=== PATIENT | female | born 1945 | race Caucasian/White ===

== ENCOUNTER 2016-08-18 14:47 | Observation (INO) | payer OTHER ==
[2016-08-18] MEDS ORDERED: CEFAZOLIN 1 GM/D5W RTU 50 ML IV ONE (15:17)
--- NOTE | 2016-08-18 15:20 | ER Document Report ---
ED Extremity Problem, Lower - General Time seen by provider: 15:20 Mode of Arrival: Medic Information source: Patient TRAVEL OUTSIDE OF THE [place] IN LAST 30 DAYS: No - HPI Patient complains to provider of: Injury Associated symptoms: Other - See above <RHONA BEATTY - Last Filed: 08/18/16 16:46> <ALTONLONDON SAMPSON - Last Filed: 08/18/16 22:51> - General Chief Complaint: Ankle Injury Stated Complaint: LEFT ANKLE INJURY Notes: Patient is a 70 year old female who presents to the emergency department via EMS complaining of a left ankle injury just prior to arrival. Patient states she was mowing the lawn when she tripped and ran over her inner left ankle with the mower. Patient denies hitting her head or pain elsewhere. Patient reports she is on blood pressure medication and denies being on any blood thinners. ( RHONA BEATTY) - Related Data Allergies/Adverse Reactions: No Known Allergies Allergy (Unverified 04/02/11 18:36) Past Medical History - General Information source: Patient - Social History Smoking Status: Unknown if Ever Smoked Family History: Reviewed & Not Pertinent - Past Medical History Cardiac Medical History: Reports: Hx Hypertension - meds x 20 years Endocrine Medical History: Reports: Hx Diabetes Mellitus Type 2 Musculoskeltal Medical History: Reports Hx Arthritis Past Surgical History: Reports: Hx Appendectomy - Immunizations Hx Diphtheria, Pertussis, Tetanus Vaccination: No <RHONA BEATTY - Last Filed: 08/18/16 16:46> Review of Systems - Review of Systems Constitutional: No symptoms reported EENT: No symptoms reported Cardiovascular: No symptoms reported Respiratory: No symptoms reported Gastrointestinal: No symptoms reported Genitourinary: No symptoms reported Female Genitourinary: No symptoms reported Musculoskeletal: See HPI, Other - left ankle injury Skin: No symptoms reported Hematologic/Lymphatic: No symptoms reported Neurological/Psychological: No symptoms reported -: Yes All other systems reviewed and negative <RHONA BEATTY - Last Filed: 08/18/16 16:46> Physical Exam <RHOAN BEATTY - Last Filed: 08/18/16 16:46> - Vital signs Interpretation: Normal - General General appearance: Appears well, Alert - HEENT Head: Normocephalic, Atraumatic Eyes: Normal Pupils: PERRL - Respiratory Respiratory status: No respiratory distress Chest status: Nontender Breath sounds: Normal Chest palpation: Normal - Cardiovascular Rhythm: Regular Heart sounds: Normal auscultation Murmur: No - Abdominal Inspection: Normal Distension: No distension Bowel sounds: Normal Tenderness: Nontender Organomegaly: No organomegaly - Back Back: Normal, Nontender - Extremities General upper extremity: Normal inspection, Nontender, Normal color, Normal ROM , Normal temperature Shoulder: Normal Arm: Normal Elbow: Normal Forearm: Normal Wrist: Normal Hand: Normal Hip: Normal Thigh: Normal Knee: Normal Calf: Normal - Neurological Neuro grossly intact: Yes Cognition: Normal Orientation: AAOx4 Taiwo Coma Scale Eye Opening: Spontaneous Taiwo Coma Scale Verbal: Oriented Taiwo Coma Scale Motor: Obeys Commands Taiwo Coma Scale Total: 15 Speech: Normal Motor strength normal: LUE, RUE, LLE, RLE Sensory: Normal - Psychological Associated symptoms: Normal affect, Normal mood - Skin Skin Temperature: Warm Skin Moisture: Dry Skin Color: Normal <LONDON DANG - Last Filed: 08/18/16 22:51> - Vital signs Vitals: Temp Pulse Resp BP Pulse Ox 97.8 F 89 20 155/92 H 96 08/18/16 14:56 08/18/16 14:56 08/18/16 14:56 08/18/16 14:56 08/18/16 14:56 - Extremities Notes: Left ankle: 8cm length by 6 cm wdth along the posterior medial aspect of the ankle. Exposed/lacerated posterior tibial tendon. Patient lacks sensation along the plantar aspect of the great toe. Patient has intact plantar flexion and dorsiflexion against resistance. Can invert/ krystal. Maceration of the skin with exposed bone. (LONDON DANG) Course - Laboratory Result Diagrams: 08/18/16 15:26 08/18/16 15:26 - Consults Dr. Hair Time consulted: 15:55 - Agreed to come view the patient <RHONA BEATTY - Last Filed: 08/18/16 16:46> - Laboratory Result Diagrams: 08/18/16 15:26 08/18/16 15:26 - Diagnostic Test Radiology reviewed: Image reviewed, Reports reviewed - Consults Dr. Hair Consulted provider: will come to ER <LONDON DANG - Last Filed: 08/18/16 22:51> - Re-evaluation Re-evalutation: 08/18/16 Patient with a complicated laceration after a foot versus lawnmower incident today. Orthopedics was consult it as the patient had tendon involvement. Patient was sedated so that bedside exam could be performed and it was decided the patient will go to the operating room. Patient has been given tetanus and Ancef here in the emergency department. No other injuries. Stable at time of admission. (LONDON DANG) - Vital Signs Vital signs: Temp Pulse Resp BP Pulse Ox 97.5 F 78 15 127/72 H 91 L 08/18/16 20:45 08/18/16 20:45 08/18/16 20:45 08/18/16 20:45 08/18/16 20:45 - Laboratory Laboratory results interpreted by me: 08/18/16 08/18/16 15:26 16:20 Glucose 140 H Urine Blood SMALL H Procedures - Conscious Sedation Conscious sedation Consent obtained: Yes Pt with a mild systemic disease.: P2. - ASA Classification. Airway Evaluation: Normal anatomy Mallampati Classification: Class 1 Used during procedure: Suction available, IV access obtained, Pulse ox on pt., monitor and storage bin tender on pt. Medications administered: Fentanyl, Ketamine Reversal agents: None I personally performed/intraservice time: Sedation, 30 min or less Complications: No <LONDON DANG - Last Filed: 08/18/16 22:51> Critical Care Note - Critical Care Note Total time excluding time spent on procedures (mins): 35 - evaluation and management a complicated laceration of foot/ankle, coordination with specialist , evaluation and management, counseling of patient, multiple re-evaluations, excludes sedation time <LONDON DANG - Last Filed: 08/18/16 22:51> Discharge <RHONA BEATTY - Last Filed: 08/18/16 16:46> - Discharge Admitting Provider: mickiehodan Unit Admitted: OR <LONDON DAGN - Last Filed: 08/18/16 22:51> - Discharge Clinical Impression: Laceration of left ankle with complication Qualifiers: Encounter type: initial encounter Qualified Code(s): S91.012A - Laceration without foreign body, left ankle, initial encounter Condition: Stable Disposition: ADMITTED INPATIENT Scribe Attestation: 08/18/16 22:48 I personally performed the services described in the documentation, reviewed and edited the documentation which was dictated to the scribe in my presence, and it accurately records my words and actions. (LONDON DANG) Scribe Documentation - Scribe Written by Scribe:: nithya Montanez, 08/18/16, [id number] acting as scribe for :: Alton <RHONA BEATTY - Last Filed: 08/18/16 16:46>
[2016-08-18] MEDS ORDERED: DIPH/PERTUSS(ACELL)/TETANUS VAC/PF 0.5 ML SYR (>=10YO) IM ONE (15:33)
[2016-08-18 15:53] LABS: ABSOLUTE BASOPHILS # (AUTO) 0.1 10^3/uL (0.0-0.2); ABSOLUTE EOSINOPHILS # (AUTO) 0.1 10^3/uL (0.0-0.6); ABSOLUTE LYMPHOCYTES (AUTO) 2.5 10^3/uL (0.5-4.7); ABSOLUTE MONOCYTES (AUTO) 0.8 10^3/uL (0.1-1.4); ABSOLUTE NEUT (AUTO) 5.6 10^3/uL (1.7-8.2); BASOPHILS % (AUTO) 0.8 % (0-2); EOSINOPHILS % (AUTO) 1.3 % (0-6); HEMATOCRIT 41.6 % (36.0-47.0); HEMOGLOBIN 13.9 g/dL (12.0-15.5); HGB HCT DIFFERENCE 0.1; MEAN CORPUSCULAR HGB CONC 33.4 g/dL (32.0-36.0); MEAN CORPUSCULAR VOLUME 96 fl (80-97); MONOCYTES % (AUTO) 8.5 % (3-13); RED BLOOD COUNT 4.34 10^6/uL (3.72-5.28); RED CELL DISTRIBUTION WIDTH 13.7 % (11.5-14.0); SEGMENTED NEUTROPHILS % (AUTO) 61.4 % (42-78); WHITE BLOOD COUNT 9.1 10^3/uL (4.0-10.5)
[2016-08-18] MEDS ORDERED: LIDOCAINE 1% INJ-PF (10 MG/ML) 30 ML SDV INJ ONE (15:59)
[2016-08-18 16:04] LABS: ALANINE AMINOTRANSFERASE 27 U/L (9-52); ALBUMIN 4.1 g/dL (3.5-5.0); ALKALINE PHOSPHATASE 78 U/L (38-126); ANION GAP 12 (5-19); ASPARTATE AMINO TRANSFERASE 24 U/L (14-36); BILIRUBIN,DIRECT 0.3 mg/dL (0.0-0.4); BILIRUBIN,TOTAL 0.4 mg/dL (0.2-1.3); BLOOD UREA NITROGEN 16 mg/dL (7-20); CALCIUM 9.8 mg/dL (8.4-10.2); CARBON DIOXIDE 29 mmol/L (22-30); CHLORIDE 101 mmol/L (98-107); CREATININE RESULT 0.79 mg/dL (0.52-1.25); GLUCOSE 140 mg/dL (75-110); POTASSIUM 4.4 mmol/L (3.6-5.0); SODIUM 142.1 mmol/L (137-145); TOTAL PROTEIN 7.8 g/dL (6.3-8.2)
[2016-08-18 16:15] LABS: PROTHROMBIN TIME 12.4 SEC (11.4-15.4)
[2016-08-18 16:16] LABS: PARTIAL THROMBOPLASTIN TIME 30.2 SEC (23.5-35.8)
[2016-08-18] MEDS ORDERED: KETAMINE HCL INJ 500 MG/10 ML VIAL IV ONE (16:31)
[2016-08-18] MEDS ORDERED: FENTANYL CITRATE INJ/PF 100 MCG/2 ML AMPUL ONE (16:34)
[2016-08-18] MEDS ORDERED: FENTANYL CITRATE INJ/PF 100 MCG/2 ML AMPUL IV ONE (16:43)
[2016-08-18] MEDS ORDERED: ONDANSETRON HCL INJ/PF 4 MG/2 ML SDV IV ONE (17:11)
[2016-08-18] MEDS ORDERED: ONDANSETRON HCL INJ/PF 4 MG/2 ML SDV ONE ×2 (17:12→19:17)
[2016-08-18] MEDS ORDERED: HYDROMORPHONE HCL INJ/PF 2 MG/ML AMPULE ONE (17:34)
--- NOTE | 2016-08-18 17:34 | PDOC H&P ---
History of Present Illness Patient complains of: left ankle laceration History of Present Illness: ENIO MOREJON is a 70 year old female 70-year-old female who sustained a laceration to the left heel from her lawnmower this afternoon 08/18/16. Patient is unsure the exact nature of the injury but she got off her lawnmower when she felt a stabbing pain and noted bleeding. She was brought to the emergency room immediately where she was started on Ancef and tetanus and radiographs were obtained. Patient states pain is worse with any motion. Has some numbness and tingling along the inner aspect of her great toe. Pain 6/10. Past Medical History Cardiac Medical History: Reports: Hypertension - meds x 20 years Denies: Coronary Artery Disease, Myocardial Infarction Pulmonary Medical History: Denies: Asthma, Bronchitis, Chronic Obstructive Pulmonary Disease (COPD), Pneumonia Neurological Medical History: Denies: Seizures Endocrine Medical History: Reports: Diabetes Mellitus Type 2 GI Medical History: Denies: Hepatitis, Hiatal Hernia Musculoskeltal Medical History: Reports: Arthritis Hematology: Denies: Anemia, Sickle Cell Disease Past Surgical History Past Surgical History: Reports: Appendectomy Denies: Amputation, Hysterectomy, Mastectomy, Pacemaker Social History Smoking Status: Unknown if Ever Smoked Family History Family History: Reviewed & Not Pertinent Parental Family History Reviewed: No Children Family History Reviewed: No Sibling(s) Family History Reviewed.: No Medication/Allergy Allergies/Adverse Reactions: No Known Allergies Allergy (Unverified 04/02/11 18:36) Review of Systems Constitutional: ABSENT: chills, fever(s), headache(s), weight gain, weight loss Eyes: ABSENT: visual disturbances Ears: ABSENT: hearing changes Cardiovascular: ABSENT: chest pain, dyspnea on exertion, edema, orthropnea, palpitations Respiratory: ABSENT: cough, hemoptysis Gastrointestinal: ABSENT: abdominal pain, constipation, diarrhea, hematemesis, hematochezia, nausea, vomiting Genitourinary: ABSENT: dysuria, hematuria Musculoskeletal: PRESENT: as per HPI Integumentary: ABSENT: rash, wounds Neurological: ABSENT: abnormal gait, abnormal speech, confusion, dizziness, focal weakness, syncope Psychiatric: ABSENT: anxiety, depression, homidical ideation, suicidal ideation Endocrine: ABSENT: cold intolerance, heat intolerance, menstrual abnormalities, polydipsia, polyuria Hematologic/Lymphatic: ABSENT: easy bleeding, easy bruising, lymphadenopathy Physical Exam Vital Signs: Temp Pulse Resp BP Pulse Ox 97.8 F 84 12 109/84 99 08/18/16 14:56 08/18/16 17:04 08/18/16 17:04 08/18/16 17:04 08/18/16 17:04 Intake & Output 08/17/16 08/18/16 08/19/16 06:59 06:59 06:59 Weight 84.6 kg General appearance: PRESENT: no acute distress, well-developed, well-nourished Head exam: PRESENT: atraumatic, normocephalic Eye exam: PRESENT: conjunctiva pink, EOMI, PERRLA. ABSENT: scleral icterus Ear exam: PRESENT: normal external ear exam Mouth exam: PRESENT: moist, tongue midline Teeth exam: PRESENT: other - Partial dentures. Neck exam: PRESENT: full ROM. ABSENT: carotid bruit, JVD, lymphadenopathy, thyromegaly Cardiovascular exam: PRESENT: RRR. ABSENT: diastolic murmur, rubs, systolic murmur Pulses: PRESENT: normal dorsalis pedis pul, +2 pedal pulses bilateral Vascular exam: PRESENT: normal capillary refill GI/Abdominal exam: PRESENT: normal bowel sounds, soft. ABSENT: distended, guarding, mass, organolmegaly, rebound, tenderness Rectal exam: PRESENT: deferred Musculoskeletal exam: PRESENT: other - Left ankle: 8cm length by 6 cm wdth along the posterior medial aspect of the ankle. There is involvement of the posterior tibial tendon however patient does have intact inversion against resistance. Less than 15% involvement of the Achilles tendon. No active pulsatile bleeding. Patient lacks sensation along the plantar aspect of the great toe. Intact sensation dorsally. Patient has intact plantar flexion and dorsiflexion against resistance. Maceration of the skin with exposed bone. Small fracture along the medial aspect of the calcaneus. Neurological exam: PRESENT: alert, awake, oriented to person, oriented to place , oriented to time, oriented to situation, CN II-XII grossly intact. ABSENT: motor sensory deficit Psychiatric exam: PRESENT: appropriate affect, normal mood. ABSENT: homicidal ideation, suicidal ideation Skin exam: PRESENT: dry, intact, warm. ABSENT: cyanosis, rash Results Laboratory Results: 08/18/16 15:26 08/18/16 15:26 08/18/16 08/18/16 15:26 15:26 WBC 9.1 RBC 4.34 Hgb 13.9 Hct 41.6 MCV 96 MCH 32.0 MCHC 33.4 RDW 13.7 Plt Count 303 Seg Neutrophils % 61.4 Lymphocytes % 28.0 Monocytes % 8.5 Eosinophils % 1.3 Basophils % 0.8 Absolute Neutrophils 5.6 Absolute Lymphocytes 2.5 Absolute Monocytes 0.8 Absolute Eosinophils 0.1 Absolute Basophils 0.1 Sodium 142.1 Potassium 4.4 Chloride 101 Carbon Dioxide 29 Anion Gap 12 BUN 16 Creatinine 0.79 Est GFR ( Amer) > 60 Est GFR (Non-Af Amer) > 60 Glucose 140 H Calcium 9.8 Total Bilirubin 0.4 AST 24 ALT 27 Alkaline Phosphatase 78 Total Protein 7.8 Albumin 4.1 Impressions: Ankle X-Ray 08/18/16 14:57 IMPRESSION: Calcaneal fracture. Foot X-Ray 08/18/16 14:57 IMPRESSION: Nondisplaced coronal calcaneal fracture. Assessment & Plan - Diagnosis (1) Laceration of left ankle with complication Qualifiers: Encounter type: initial encounter Qualified Code(s): S91.012A - Laceration without foreign body, left ankle, initial encounter Is this a current diagnosis for this admission?: YesPlan: Patient sustained a complicated laceration along the medial aspect of her heel. She is at high risk of infection and soft tissue loss given her history of diabetes. Exploration of the wound was undertaken in the emergency room and at that point given the amount of skin loss and maceration I recommended operative intervention which includes placement of wound VAC, excisional irrigation and debridement. Risks and benefits of the surgical procedure have been explained to the patient risks including neurovascular risks, postoperative pain, postoperative stiffness, decreased ambulatory status, need for further intervention including flap. Patient has verbalized understanding of the risks and benefits and consented for the procedure. Procedure note: Consent was obtained for irrigation and debridement with possible closure of the left ankle wound. Patient received ketamine once adequately anesthetized 20 mL of 50:50 mixture of lidocaine and Marcaine were injected locally. Once local block set the wound was irrigated with saline and Betadine. It was prepped in a sterile fashion and draped. Exploration demonstrated maceration of the skin edges without ability to close primarily and exposed tendon and underlying bone of the calcaneus. At that point the decision was made the patient would require operative procedure including possible wound VAC as noted above.
[2016-08-18] MEDS ORDERED: PROPOFOL INJ 200 MG/20 ML VIAL IV ONE (17:35)
[2016-08-18] MEDS ORDERED: MIDAZOLAM 2 MG/2 ML INJ ONE (17:35)
[2016-08-18] MEDS ORDERED: FENTANYL CITRATE INJ/PF 100 MCG/2 ML AMPUL IV PRN ×3 (18:03)
[2016-08-18] MEDS ORDERED: OXYCODONE-ACETAMINOPHEN 5-325 MG TABLET PO PRN ×2 (18:03)
[2016-08-18] MEDS ORDERED: MEPERIDINE HCL/PF INJ 25 MG/1 ML DISP.SYRIN IV PRN (18:03)
[2016-08-18] MEDS ORDERED: DIPHENHYDRAMINE HCL 50 MG/ML VIAL IV PRN (18:03)
[2016-08-18] MEDS ORDERED: PROMETHAZINE HCL INJ 25 MG/1 ML VIAL IV PRN ×2 (18:03)
[2016-08-18] MEDS ORDERED: ONDANSETRON HCL INJ/PF 4 MG/2 ML SDV IV PRN (18:03)
[2016-08-18] MEDS ORDERED: MORPHINE SULFATE 10 MG/ML INJ IV PRN ×2 (18:03→18:45)
[2016-08-18] MEDS ORDERED: BUPIVACAINE HCL 0.25 % INJ/PF (2.5 MG/1 ML) 30 ML VIAL ONE (18:10)
--- NOTE | 2016-08-18 18:41 | Operative Report ---
Operative Report DATE OF SURGERY: 08/18/16 PREOPERATIVE DIAGNOSIS: Laceration Left Ankle S/P Lawnmower Injury POSTOPERATIVE DIAGNOSIS: Same +. Partial Laceration Achilles Tendon. Open Calcaneus Fracture. Significant Skin Loss OPERATION: Excisional Debridement Deep Tissue Including Bone w/ Irrigation. Repair Partial Achilles Tendon Laceration. Placement of Wound VAC 9cm x 6cm Wound SURGEON: DEBORAH FRANK ANESTHESIA: LMAC COMPLICATIONS: None ESTIMATED BLOOD LOSS: Minimal PROCEDURE: Indication for above procedure: 70-year-old female who sustained a laceration to the left heel from her lawnmower this afternoon 08/18/16. Patient is unsure the exact nature of the injury but she got off her lawnmower when she felt a stabbing pain and noted bleeding. She was brought to the emergency room immediately where she was started on Ancef and tetanus and radiographs were obtained. Patient states pain is worse with any motion. Has some numbness and tingling along the inner aspect of her great toe. Pain 6/10. Procedure In Detail: Patient was seen and evaluated in the preoperative holding area. The left lower extremity was initialized and marked. Patient received 2g of Ancef IV for bacterial prophylaxis in the emergency room. Patient was taken back to the operative room where transferred to the operative table and placed under MAC anesthesia. Once they were adequately anesthetized a nonsterile tourniquet was placed on the lower extremity. A surgical team debriefing was performed ensuring all instrumentation was available, the surgical procedure was discussed with possible concerns reviewed. The lower extremity was prepped with betadine and draped in a sterile fashion. A timeout was done identifying correct patient, procedure and extremity everyone in attendance agree with this and verbalized no concerns. The extremity was exsanguinated the tourniquet was inflated to 250 mmHg. The wound was debrided deeply down to the calcaneus bone. Any nonviable tissue including the macerated skin and bone were excised. Wound size is 9 cm x 7 cm with involvement of bone and tendon. Achilles tendon was involved less than 20 % with the majority of the tendon intact and not involved. The wound was then copiously irrigated with normal saline. There was contamination of dirt and grass which was excised and removed. I then identified the posterior tibial tendon which was 2 cm anterior to the wound and intact. A small branch of the saphenous nerve was disrupted and subsequently excised proximal to avoid post op neuroma. Partial Achilles tendon laceration was then reapproximated with 0 Vicryl suture successfully covering calcaneus and thus no exposed bone remain however the tendon edges were shredded. Irrigation was then repeated and nonviable remaining tissue was once again excised I then placed Adaptic over the deep soft tissues to avoid disruption. The wound VAC was then secured and suction was placed ensuring good seal. Wound VAC was set at 100 mmHg of continuous suction. Patient was placed in a anterior ortho glass splint with the foot in plantar flexion. 5 mL of 0.25% Marcaine was injected for postoperative pain control. Sponge counts, instrument counts, needle counts counts were correct. Patient was then awoken from anesthesia. Transferred from the operating room table to the operating room stretcher. There was no intraoperative complications patient tolerated procedure well stable to PACU. Postoperative plan: Patient will remain in the hospital for the weekend until we are able to set her up with outpatient wound VAC. Patient will likely require referral to plastic surgery for possible flap coverage.
[2016-08-18 19:00] LABS: APPEARANCE,URINE CLEAR; BILIRUBIN,URINE NEGATIVE (NEGATIVE); GLUCOSE, URINE NEGATIVE (NEGATIVE); KETONES,URINE NEGATIVE (NEGATIVE); LEUKOCYTE ESTERASE,URINE NEGATIVE (NEGATIVE); NITRITE,URINE NEGATIVE (NEGATIVE); PROTEIN,URINE NEGATIVE (NEGATIVE); URINE SPECIFIC GRAVITY 1.011; UROBILINOGEN,URINE NEGATIVE mg/dL (<2.0)
[2016-08-18] MEDS: HEPARIN SOD (PORCINE) 5,000 UNIT/ML 1 ML SYRINGE SUBCUT SCH (21:16)
--- NOTE | 2016-08-18 23:04 | PDOC CONSULTATION ---
Consultation Consult Date: 08/18/16 Attending physician:: DEBORAH FRANK Consult reason:: diabetic management History of Present Illness Admission Date/PCP: 08/18/16 17:09 Patient complains of: left ankle/foot injury History of Present Illness: ENIO MOREJON is a 70 year old female who sustained a laceration to the left heel from her lawnmower this afternoon 08/18/16. Patient is unsure the exact nature of the injury but she got off her lawnmower when she felt a stabbing pain and noted bleeding. She was brought to the emergency room immediately where she was started on Ancef and tetanus and radiographs were obtained. Patient states pain is worse with any motion. Has some numbness and tingling along the inner aspect of her great toe. Pain 6/10. Patient has since been taken to the operating room by Dr. Frank. Operative note reviewed. Currently resting quietly. Adequate pain control at this point in time. Consult placed for management of diabetes mellitus and medical problems. Patient has been discussed with floor nursing staff managing the patient. Laboratory results are listed in [facility] and are reviewed. X-ray summary results are listed below, with full report(s) reviewed. . Social history/personal habits: . Retired. Lives with . No use of alcohol tobacco or illicit drugs. Allergies/adverse reactions NKDA. Home medications are reviewed in [facility]. Unfortunately, patient uncertain of dosages/frequencies. REVIEW OF SYSTEMS: Constitutional: No fever or chills. Eyes: Wears glasses. ENT: Partial hearing loss. Pulmonary: No current complaints. Cardiovascular: No current complaints, including chest pain. Gastrointestinal: Mild nausea present. Skin: No current complaints, including rashes. Hematologic: No unusual easy bruising or bleeding. Neurologic: No current complaints, including numbness or tingling. Musculoskeletal: See history and present illness. Joint pain from arthritis. Psychiatric: No current complaints, including anxiety or depression. Endocrine: No current complaints, including polyuria. Genitourinary: No current complaints, including dysuria. PHYSICAL EXAMINATION: 5 feet 2 inches tall. 85.2 kg. BMI 34.4 kg/m.Temperature 97.5. Pulse 81 and regular. Blood pressure 124/59. Respirations are 15 and unlabored. 91% saturation on room air. Female Floor nurse Genny is present. Slightly obese otherwise well-developed elderly female appearing approximately her stated age. Slightly drowsy from pain medication, but otherwise pleasant awake alert and cooperative. Mildly anxious, without agitation. Skin is warm and dry. No grossly obvious evidence of rash in areas of skin examined. No subcutaneous nodules palpated. ENT: Hearing grossly normal to normal conversation. Tongue midline on protrusion pink and slightly tacky. Eyes: No scleral icterus. Pupils equal and reactive to light at 4 mm. [place] conjunctivae. No raccoon eyes. Neck is supple and nontender to gentle active range of motion and palpation. Midline trachea. No palpable thyroid nodule mass enlargement or tenderness. Lymphatic: No palpable cervical or clavicular nodes. Neck and lymphatic exams limited by patient body habitus. Psychiatric: Reasonable insight into acute and chronic medical issues. Oriented to time location and why here. Lungs: Auscultation reveals clear and equal breath sounds bilaterally. No use of accessory respiratory muscles. Cardiovascular: Heart regular rate and rhythm, without gallop murmur or rub. No carotid or abdominal aortic bruits. No right ankle or pedal edema. Faintly palpable right dorsalis pedis pulse. Examination of left lower extremity limited by circumferential dressing present from just below the knee through the distal foot. Left toes are warm and dry with excellent capillary refill. Abdomen: soft, somewhat obese, nontender with positive bowel sounds. Unable to adequately evaluate abdomen for masses or organomegaly due to body habitus. Extremities: Right foot warm and dry. No right calf tenderness to compression. No grossly obvious visual evidence of right calf swelling. Gentle manipulation of right lower extremity fails to reveal any obvious evidence of injury or instability to knee hip or ankle.. Neurologic: Moves upper extremities grossly normally. Patellar reflexes absent. Absent right Babinski. Light touch is intact at right foot. Dorsiflexion and plantarflexion of right foot 5 over 5. Past Medical History Cardiac Medical History: Reports: Hypertension - meds x 20 years Denies: Congestive Heart Failure, Coronary Artery Disease, DVT, Myocardial Infarction, Hyperlipidema, Heart Murmur Pulmonary Medical History: Denies: Asthma, Bronchitis, Chronic Obstructive Pulmonary Disease (COPD), Pneumonia EENT Medical History: Reports: Eyes - Glasses, Ears - Partial hearing loss Neurological Medical History: Denies: Hemorrhagic CVA, Ischemic CVA, Seizures Endocrine Medical History: Reports: Diabetes Mellitus Type 2 Denies: Diabetes Mellitus Type 1, Hyperthyroidism, Hypothyroidism Renal/ Medical History: Reports: None GI Medical History: Reports: Gastroesophageal Reflux Disease Denies: Cirrhosis, Hepatitis, Hiatal Hernia, Peptic Ulcer Disease Musculoskeltal Medical History: Reports: Arthritis Skin Medical History: Reports: None Hematology: Denies: Anemia, Sickle Cell Disease Infectious Medical History: Denies: Hepatitis B, Hepatitis C Past Surgical History Past Surgical History: Reports: Appendectomy, Orthopedic Surgery - Left foot surgery, 08/18/2016 Denies: Amputation Social History Information Source: Patient, Emergency Med Personnel, [facility] Records Lives with: Spouse/Significant other Smoking Status: Never Smoker Frequency of Alcohol Use: None Drugs: None - Advance Directive Resuscitation Status: Full Code Surrogate healthcare decision maker:: Daughter Edel; has dementia. Family History Family History: Reviewed & Not Pertinent Parental Family History Reviewed: Yes Children Family History Reviewed: Yes Sibling(s) Family History Reviewed.: Yes Medication/Allergy Home Medications: RX: Esomeprazole Magnesium [Nexium] 40 mg PO DAILY PRN 08/19/16 RX: Glimepiride [Amaryl] 2 mg PO DAILY 08/19/16 RX: Hydrochlorothiazide [Hydrodiuril 25 mg Tablet] 25 mg PO DAILY 08/19/16 RX: Lisinopril [Prinivil 5 mg Tablet] 5 mg PO DAILY 08/19/16 RX: Metformin HCl [Metformin HCl ER] 500 mg PO BID 08/19/16 RX: Verapamil HCl [Verapamil Sr] 180 mg PO DAILY 08/19/16 Ciprofloxacin HCl [Cipro 500 mg Tablet] 500 mg PO BID #14 tablet 08/21/16 Clindamycin HCl [Cleocin HCl] 300 mg PO TID #21 capsule 08/21/16 Oxycodone HCl/Acetaminophen [Percocet 5-325 mg Tablet] 1 - 2 tab PO ASDIR PRN # 40 tablet 08/21/16 Allergies/Adverse Reactions: No Known Allergies Allergy (Unverified 04/02/11 18:36) Physical Exam Vital Signs: Temp Pulse Resp BP Pulse Ox 97.5 F 78 15 127/72 H 91 L 08/18/16 20:45 08/18/16 20:45 08/18/16 20:45 08/18/16 20:45 08/18/16 20:45 Intake & Output 08/17/16 08/18/16 08/19/16 00:59 00:59 00:59 Intake Total 2800 Output Total 1520 Balance 1280 Weight 85.2 kg Results Impressions: Ankle X-Ray 08/18/16 14:57 IMPRESSION: Calcaneal fracture. Foot X-Ray 08/18/16 14:57 IMPRESSION: Nondisplaced coronal calcaneal fracture. Assessment & Plan - Diagnosis (1) DVT prophylaxis Is this a current diagnosis for this admission?: Yes (2) HTN (hypertension) Qualifiers: Hypertension type: essential hypertension Qualified Code(s): I10 - Essential (primary) hypertension Is this a current diagnosis for this admission?: YesPlan: Resume home medications as appropriate once these have been determined and reviewed. (3) Diabetes mellitus type 2 in obese Is this a current diagnosis for this admission?: YesPlan: Diabetic cardiac diet. Accu-Cheks with appropriate sliding scale coverage. Resume home medications as appropriate once these have been determined and reviewed. Impression and plans were discussed with patient, who concurs. Thank you for asking us to see this unfortunate patient. Hospitalist team will follow her closely with you. Time spent in evaluation and management of patient: 53 minutes. - Inpatient Certification Based on my medical assessment, after consideration of the patient's comorbidities, presenting symptoms, or acuity I expect that the services needed warrant INPATIENT care.: Yes I certify that my determination is in accordance with my understanding of Medicare's requirements for reasonable and necessary INPATIENT services [42 CFR 412.3e].: Yes Medical Necessity: Need for Pain Control, Need for Surgery, Risk of Complication if Not Cared For in Hospital, Risk of Diagnosis Which Will Require Inpatient Eval/Care/Monitoring Post Hospital Care: D/C or Transfer Summary
[2016-08-19] MEDS ORDERED: CEFAZOLIN INJ 1 GM VIAL ONE (00:24)
[2016-08-19] MEDS ORDERED: GLUCAGON,HUMAN RECOMB 1 MG INJ IM PRN (00:29)
[2016-08-19] MEDS ORDERED: INSULIN LISPRO 100 UNIT/ML 3 ML VIAL SUBCUT PRN (00:29)
[2016-08-19] MEDS ORDERED: DEXTROSE 50%-WATER 25 GM/50 ML DISP.SYRIN IV PRN ×2 (00:29)
[2016-08-19] MEDS ORDERED: DEXTROSE 40% GEL 15 GM TUBE PO PRN ×2 (00:29)
[2016-08-19] MEDS: PROMETHAZINE HCL INJ 25 MG/1 ML VIAL IV PRN (00:51)
[2016-08-19] MEDS: CEFAZOLIN 2 GM/D5W RTU 50 ML IV SCH ×4 (01:00→18:57)
[2016-08-19] MEDS: ONDANSETRON HCL INJ/PF 4 MG/2 ML SDV IV PRN (03:35)
[2016-08-19] MEDS: OXYCODONE-ACETAMINOPHEN 5-325 MG TABLET PO PRN ×3 (03:36→18:37)
[2016-08-19 05:16] LABS: HEMATOCRIT 35.3 % (36.0-47.0); HEMOGLOBIN 11.9 g/dL (12.0-15.5); HGB HCT DIFFERENCE 0.4; MEAN CORPUSCULAR HEMOGLOBIN 32.1 pg (27.0-33.4); MEAN CORPUSCULAR HGB CONC 33.8 g/dL (32.0-36.0); MEAN CORPUSCULAR VOLUME 95 fl (80-97); RED BLOOD COUNT 3.71 10^6/uL (3.72-5.28); RED CELL DISTRIBUTION WIDTH 13.7 % (11.5-14.0); WHITE BLOOD COUNT 11.1 10^3/uL (4.0-10.5)
[2016-08-19 05:42] LABS: ANION GAP 11 (5-19); BLOOD UREA NITROGEN 12 mg/dL (7-20); CALCIUM 8.4 mg/dL (8.4-10.2); CARBON DIOXIDE 25 mmol/L (22-30); CHLORIDE 105 mmol/L (98-107); CREATININE RESULT 0.54 mg/dL (0.52-1.25); GLUCOSE 104 mg/dL (75-110); SODIUM 140.6 mmol/L (137-145)
[2016-08-19] MEDS: HEPARIN SOD (PORCINE) 5,000 UNIT/ML 1 ML SYRINGE SUBCUT SCH ×3 (06:11→22:17)
[2016-08-19] MEDS ORDERED: (PENDING PHARMACY ID) (Metformin Hcl [Metformin Hcl Er] 500 MG) PO SCH (10:00)
[2016-08-19] MEDS ORDERED: NORMAL SALINE 1000 ML 1,000 ML IV ONE (10:03)
[2016-08-19] MEDS ORDERED: PHARMACY COMMUNICATION ORDER MC NR (10:15)
[2016-08-19] MEDS ORDERED: GLIMEPIRIDE 1 MG TABLET PO ONE (11:30)
--- NOTE | 2016-08-19 12:03 | PDOC PROGRESS REPORT ---
Subjective Progress Note for:: 08/19/16 Subjective:: Patient lying in bed comfortable. No issues overnight. Pain control. Did have some nausea and vomiting that has resolved. Physical Exam Vital Signs: Temp Pulse Resp BP Pulse Ox 97.9 F 72 16 107/45 L 97 08/19/16 07:51 08/19/16 07:51 08/19/16 07:51 08/19/16 07:51 08/19/16 07:51 Intake & Output 08/18/16 08/19/16 08/20/16 06:59 06:59 06:59 Intake Total 3560 Output Total 2420 Balance 1140 Weight 85.2 kg Musculoskeletal exam: PRESENT: other - Left lower extremity: Dressing clean/dry/ intact. Wound VAC intact with good seal no leakage. Intact flexion extension of the toes. Cap refill less than 2 seconds. Results Laboratory Results: 08/19/16 04:37 08/19/16 04:37 08/19/16 08/19/16 04:37 04:37 WBC 11.1 H RBC 3.71 L Hgb 11.9 L Hct 35.3 L MCV 95 MCH 32.1 MCHC 33.8 RDW 13.7 Plt Count 250 Sodium 140.6 Potassium 4.0 Chloride 105 Carbon Dioxide 25 Anion Gap 11 BUN 12 Creatinine 0.54 Est GFR ( Amer) > 60 Est GFR (Non-Af Amer) > 60 Glucose 104 Calcium 8.4 Impressions: Ankle X-Ray 08/18/16 14:57 IMPRESSION: Calcaneal fracture. Foot X-Ray 08/18/16 14:57 IMPRESSION: Nondisplaced coronal calcaneal fracture. Assessment & Plan - Diagnosis (1) Laceration of left ankle with complication Qualifiers: Encounter type: initial encounter Qualified Code(s): S91.012A - Laceration without foreign body, left ankle, initial encounter Is this a current diagnosis for this admission?: YesPlan: status post complicated left ankle/foot laceration from lawnmower injury #1 continue IV antibiotics for prophylaxis #2 pain control #3 continue wound VAC #4 discharge home with wound VAC once home health set up.
[2016-08-19] MEDS ORDERED: VERAPAMIL HCL 180 MG PO SCH (14:00)
[2016-08-19] MEDS ORDERED: VERAPAMIL HCL 180 MG TABLET.SA PO ONE (14:00)
[2016-08-19] MEDS: METFORMIN HCL 500 MG TABLET PO SCH (17:30)
--- NOTE | 2016-08-19 19:57 | PDOC PROGRESS REPORT ---
Subjective Progress Note for:: 08/19/16 Subjective:: Patient seen earlier this morning on morning rounds. Patient reports that her pain is well-controlled. Patient denies chest pain, shortness of breath, abdominal pain, nausea, vomiting , fevers, chills, diarrhea, constipation, headache, new onset weakness. Physical Exam Vital Signs: Temp Pulse Resp BP Pulse Ox 98.1 F 81 14 102/71 90 L 08/19/16 15:39 08/19/16 15:39 08/19/16 15:39 08/19/16 11:36 08/19/16 15:39 Intake & Output 08/18/16 08/19/16 08/20/16 06:59 06:59 06:59 Intake Total 3560 810 Output Total 2420 1000 Balance 1140 -190 Weight 85.2 kg Exam: General: Awake alert and oriented X3, no acute respiratory distress HEENT: AT/NC, PERRL, EOMI, oropharynx is moist, pink, no scleral icterus, no conjunctival injection Neck: No JVD, trachea midline Chest: Clear to auscultation bilaterally, no wheezes rhonchi or rales CV: Regular rate and rhythm, normal S1 and S2, no murmur, rub, or gallop Abdomen: Soft, nontender to palpation, nondistended, active bowel sounds; no rebound, rigidity, or guarding Extremities: No cyanosis, clubbing or edema; left lower extremity bandaged, dressing clean dry and intact, protruding toes with neurosensory intact Neuro: Cranial nerves II through XII are grossly intact without focal deficits; awake alert and oriented X3 Psych: Normal mood and affect Results Laboratory Results: 08/19/16 04:37 08/19/16 04:37 08/19/16 08/19/16 04:37 04:37 WBC 11.1 H RBC 3.71 L Hgb 11.9 L Hct 35.3 L MCV 95 MCH 32.1 MCHC 33.8 RDW 13.7 Plt Count 250 Sodium 140.6 Potassium 4.0 Chloride 105 Carbon Dioxide 25 Anion Gap 11 BUN 12 Creatinine 0.54 Est GFR ( Amer) > 60 Est GFR (Non-Af Amer) > 60 Glucose 104 Calcium 8.4 Impressions: Ankle X-Ray 08/18/16 14:57 IMPRESSION: Calcaneal fracture. Foot X-Ray 08/18/16 14:57 IMPRESSION: Nondisplaced coronal calcaneal fracture. Assessment & Plan - Diagnosis (1) Laceration of left ankle with complication Qualifiers: Encounter type: initial encounter Qualified Code(s): S91.012A - Laceration without foreign body, left ankle, initial encounter Is this a current diagnosis for this admission?: YesPlan: Defer to the orthopedics team caring for this injury for all complications and matters relating to this. (2) Diabetes mellitus type 2 in obese Is this a current diagnosis for this admission?: YesPlan: Hemoglobin A1c 6.8. Well-controlled. Stop Accu-Cheks. Patient currently on glimepiride and metformin. Will resume these. (3) GERD (gastroesophageal reflux disease) Is this a current diagnosis for this admission?: YesPlan: Continue patient's PPI (4) HTN (hypertension) Qualifiers: Hypertension type: essential hypertension Qualified Code(s): I10 - Essential (primary) hypertension Is this a current diagnosis for this admission?: YesPlan: Currently with blood pressure in good range. Will hold patient's lisinopril and will continue her home verapamil. Will also hold HCTZ at this time. (5) Obesity due to excess calories with serious comorbidity Is this a current diagnosis for this admission?: YesPlan: Encourage weight loss once able to tolerate weight (6) DVT prophylaxis Is this a current diagnosis for this admission?: YesPlan: On heparin - Time Time Spent with patient: 25-34 minutes Medications reviewed and adjusted accordingly: Yes Anticipated discharge: Home Within: within 48 hours
[2016-08-20] MEDS: CEFAZOLIN 2 GM/D5W RTU 50 ML IV SCH ×4 (01:49→17:57)
[2016-08-20] MEDS: OXYCODONE-ACETAMINOPHEN 5-325 MG TABLET PO PRN ×2 (02:00→17:56)
[2016-08-20] MEDS: HEPARIN SOD (PORCINE) 5,000 UNIT/ML 1 ML SYRINGE SUBCUT SCH ×3 (06:02→22:10)
[2016-08-20] MEDS: ONDANSETRON HCL INJ/PF 4 MG/2 ML SDV IV PRN (07:01)
--- NOTE | 2016-08-20 08:14 | PDOC PROGRESS REPORT ---
Subjective Progress Note for:: 08/20/16 Subjective:: Patient seen and evaluated this morning. She states her pain is worse this morning. Denies fever chills or sweats. Denies chest pain or shortness of breath. Physical Exam Vital Signs: Temp Pulse Resp BP Pulse Ox 98.0 F 72 16 126/65 H 95 08/20/16 07:37 08/20/16 07:37 08/20/16 07:37 08/20/16 07:37 08/20/16 07:37 Intake & Output 08/19/16 08/20/16 08/21/16 06:59 06:59 06:59 Intake Total 3560 1370 Output Total 2420 1300 Balance 1140 70 Weight 85.2 kg Musculoskeletal exam: PRESENT: other - Left lower extremity: Wound VAC intact good seal. Intact plantar flexion/dorsiflexion. No sensory deficits along the toes. Cap refill less than 2 seconds. Results Laboratory Results: 08/19/16 04:37 08/19/16 04:37 Impressions: Ankle X-Ray 08/18/16 14:57 IMPRESSION: Calcaneal fracture. Foot X-Ray 08/18/16 14:57 IMPRESSION: Nondisplaced coronal calcaneal fracture. Assessment & Plan - Diagnosis (1) Laceration of left ankle with complication Qualifiers: Encounter type: initial encounter Qualified Code(s): S91.012A - Laceration without foreign body, left ankle, initial encounter Is this a current diagnosis for this admission?: YesPlan: Status post woolen tester injury left foot Plan at this point was dissected patient up with a home wound VAC. She will continue by mouth antibiotics at home. Once the wound VAC set up for home she will be was medically stable for discharge. She will follow up with me next Saturday for wound recheck.
--- NOTE | 2016-08-20 08:26 | Physician Advisory Note ---
Physician Advisor ProgressNote .: Pursuant to the plan for [facility], I have reviewed the medical record for this patient. Physician Advisor Statement: Possible documentation opportunities if attending agrees: 1. "anemia of acute blood loss due to ankle lac" 2. ? - "MEÑO using CPAP at night" Status: Appropriate for Outpt Obs status, as basically just waiting the 2nd MN for arrangements for home wound vac to be made on Saturday. Thanks for your help with documentation accuracy/specificity improvement! Hoda Riley MD [facility] Physician Advisor, Fellow of [facility]
[2016-08-20] MEDS ORDERED: LANSOPRAZOLE 30 MG TAB.RAP.DR PO PRN (08:48)
[2016-08-20] MEDS: VERAPAMIL HCL 180 MG TABLET.SA PO SCH (10:28)
[2016-08-20] MEDS: GLIMEPIRIDE 1 MG TABLET PO SCH (10:28)
[2016-08-20] MEDS: METFORMIN HCL 500 MG TABLET PO SCH ×2 (10:29→17:58)
[2016-08-20] MEDS: PROMETHAZINE HCL INJ 25 MG/1 ML VIAL IV PRN (10:53)
[2016-08-20 11:50] LABS: ABSOLUTE EOSINOPHILS # (AUTO) 0.1 10^3/uL (0.0-0.6); ABSOLUTE LYMPHOCYTES (AUTO) 2.3 10^3/uL (0.5-4.7); ABSOLUTE MONOCYTES (AUTO) 0.7 10^3/uL (0.1-1.4); ABSOLUTE NEUT (AUTO) 5.2 10^3/uL (1.7-8.2); BASOPHILS % (AUTO) 0.5 % (0-2); EOSINOPHILS % (AUTO) 1.3 % (0-6); HEMATOCRIT 35.2 % (36.0-47.0); HGB HCT DIFFERENCE 0.8; MEAN CORPUSCULAR HEMOGLOBIN 32.6 pg (27.0-33.4); MEAN CORPUSCULAR HGB CONC 34.1 g/dL (32.0-36.0); MEAN CORPUSCULAR VOLUME 96 fl (80-97); MONOCYTES % (AUTO) 8.3 % (3-13); RED BLOOD COUNT 3.68 10^6/uL (3.72-5.28); SEGMENTED NEUTROPHILS % (AUTO) 61.9 % (42-78); WHITE BLOOD COUNT 8.4 10^3/uL (4.0-10.5)
[2016-08-21] MEDS: CEFAZOLIN 2 GM/D5W RTU 50 ML IV SCH ×3 (00:48→11:31)
[2016-08-21] MEDS: HEPARIN SOD (PORCINE) 5,000 UNIT/ML 1 ML SYRINGE SUBCUT SCH ×2 (05:51→14:38)
[2016-08-21] MEDS: OXYCODONE-ACETAMINOPHEN 5-325 MG TABLET PO PRN ×2 (05:51→12:29)
[2016-08-21] MEDS: METFORMIN HCL 500 MG TABLET PO SCH (08:31)
[2016-08-21] MEDS: GLIMEPIRIDE 1 MG TABLET PO SCH (08:31)
--- NOTE | 2016-08-21 11:22 | PDOC PROGRESS REPORT ---
Subjective Progress Note for:: 08/21/16 Subjective:: Patient seen this morning. No issues overnight. She states her pain has improved. Has require minimal assistance with physical therapy. Denies numbness or tingling. Pain control. Physical Exam Vital Signs: Temp Pulse Resp BP Pulse Ox 97.9 F 78 18 125/67 92 08/21/16 09:23 08/21/16 09:23 08/21/16 09:23 08/21/16 09:23 08/21/16 09:23 Intake & Output 08/20/16 08/21/16 08/22/16 06:59 06:59 06:59 Intake Total 1370 1170 Output Total 1300 1800 Balance 70 -630 Musculoskeletal exam: PRESENT: other - Left lower extremity: Wound VAC to intact. Good seal no evidence of leakage. Splint remains intact. Intact flexion extension of the toes. Cap refill less than 2 seconds. No sensory deficits. Results Laboratory Results: 08/20/16 11:00 08/19/16 04:37 08/20/16 11:00 WBC 8.4 RBC 3.68 L Hgb 12.0 Hct 35.2 L MCV 96 MCH 32.6 MCHC 34.1 RDW 14.0 Plt Count 263 Seg Neutrophils % 61.9 Lymphocytes % 28.0 Monocytes % 8.3 Eosinophils % 1.3 Basophils % 0.5 Absolute Neutrophils 5.2 Absolute Lymphocytes 2.3 Absolute Monocytes 0.7 Absolute Eosinophils 0.1 Absolute Basophils 0.0 Impressions: Ankle X-Ray 08/18/16 14:57 IMPRESSION: Calcaneal fracture. Foot X-Ray 08/18/16 14:57 IMPRESSION: Nondisplaced coronal calcaneal fracture. Assessment & Plan - Diagnosis (1) Laceration of left ankle with complication Qualifiers: Encounter type: initial encounter Qualified Code(s): S91.012A - Laceration without foreign body, left ankle, initial encounter Is this a current diagnosis for this admission?: YesPlan: Status post excisional debridement with placement of wound VAC left ankle status post lawnmower injury #1 continue nonweightbearing with dorsal blocking splint keeping the ankle in plantar flexion. #2 pain control with Percocet #3 will continue wound VAC. Patient will follow up with me in 7 days for recheck of the wound. Should receive home health for wound VAC. #4 discharge home on by mouth clindamycin and Cipro for bacterial prophylaxis given contamination of the wound. #5 MEÑO controlled with CPAP #6. Discharge planning: Patient orthopedic stable for discharge with home health today. Once again discussed severity of patient's injury has been discussed in her risks are much higher given her diabetes. Patient is to call the office with any issues that may arise prior to her scheduled appointment.
[2016-08-21] MEDS: VERAPAMIL HCL 180 MG TABLET.SA PO SCH (11:31)
[2016-08-21] MEDS ORDERED: CIPROFLOXACIN 400 MG/D5W RTU 400 MG/200 ML RTUPB IV ONE (12:00)
[2016-08-21] MEDS: ONDANSETRON HCL INJ/PF 4 MG/2 ML SDV IV PRN (13:46)
[2016-08-21 14:44] VITALS: BP 125/67
[2016-08-21] MEDS ORDERED: CIPROFLOXACIN 400 MG/D5W RTU 400 MG/200 ML RTUPB IV SCH (22:00)
--- NOTE | 2016-08-24 13:16 | PDOC DISCHARGE SUMMARY ---
General - Admit/Disc Date/PCP Admission Date/Primary Care Provider: 08/18/16 17:09 Discharge Date: 08/21/16 - Discharge Diagnosis (1) Laceration of left ankle with complication Is this a current diagnosis for this admission?: Yes - Additional Information Resuscitation Status: Full Code Discharge Diet: As Tolerated Discharge Activity: Keep Legs Elevated, No tub bath Home Medications: Esomeprazole Magnesium [Nexium] 40 mg PO DAILY PRN 08/19/16 Glimepiride [Amaryl] 2 mg PO DAILY 08/19/16 Hydrochlorothiazide [Hydrodiuril 25 mg Tablet] 25 mg PO DAILY 08/19/16 Lisinopril [Prinivil 5 mg Tablet] 5 mg PO DAILY 08/19/16 Metformin HCl [Metformin HCl ER] 500 mg PO BID 08/19/16 Verapamil HCl [Verapamil Sr] 180 mg PO DAILY 08/19/16 Ciprofloxacin HCl [Cipro 500 mg Tablet] 500 mg PO BID #14 tablet 08/21/16 Clindamycin HCl [Cleocin HCl] 300 mg PO TID #21 capsule 08/21/16 Oxycodone HCl/Acetaminophen [Percocet 5-325 mg Tablet] 1 - 2 tab PO ASDIR PRN # 40 tablet 08/21/16 History of Present Illness History of Present Illness: ENIO MOREJON is a 70 year old female 70-year-old female who sustained a laceration to the left heel from her lawnmower this afternoon 08/18/16. Patient is unsure the exact nature of the injury but she got off her lawnmower when she felt a stabbing pain and noted bleeding. She was brought to the emergency room immediately where she was started on Ancef and tetanus and radiographs were obtained. Patient states pain is worse with any motion. Has some numbness and tingling along the inner aspect of her great toe. Pain 6/10. Hospital Course Hospital Course: On 08/18/16 patient was seen in emergency room and admitted to orthopedic service. Patient was taken to the operating room urgently for debridement with Achilles tendon repair and placement of wound VAC. Postop day 1 patient was seen and evaluated. She was started on IV Cipro and clindamycin. Because of the wound defect she was to be set up for a home wound VAC. She underwent physical therapy. She did have increased pain on postop day #1 but as time progressed her ability physical therapy improve. She was set up for home wound VAC and dressing changes. She is to follow-up in 1 week for recheck. Physical Exam Vital Signs: Temp Pulse Resp BP Pulse Ox 98.2 F 86 18 125/67 93 08/21/16 14:36 08/21/16 14:36 08/21/16 14:36 08/21/16 14:36 08/21/16 14:36 Results Laboratory Results: 08/20/16 11:00 08/19/16 04:37 Impressions: Ankle X-Ray 08/18/16 14:57 IMPRESSION: Calcaneal fracture. Foot X-Ray 08/18/16 14:57 IMPRESSION: Nondisplaced coronal calcaneal fracture. Plan Discharge Plan: Patient underwent a urgent operative procedure secondary to her severe injury. Patient is continue home wound VAC changes. She is to follow-up with me in 1 week. By mouth antibiotics Cipro and clindamycin were provided to the patient for bacterial prophylaxis. Patient is to call our office with any questions or concerns including increased redness, swelling, pain, temperature greater than 101.5. Patient read above instructions as directed above instructions was orthopedically stable for discharge to home.
== END 2016-08-21 15:45 | disposition home health service (06) ==
LOC: ER 14:47 → EH 17:09 → UNDOADMOB 17:25 → INTOOBSV 17:25 → EH 17:25 → 5 19:30
PROVIDERS: ADMIT Orthopaedic Surgery; ATTEND Orthopaedic Surgery
PROC: 0LQP0ZZ Repair Left Lower Leg Tendon, Open Approach (ICD-10-PCS; 2016-08-18)
PROC: 3E0234Z Introduction of Serum, Toxoid and Vaccine into Muscle, Percutaneous Approach (ICD-10-PCS; 2016-08-18)
PROC: 3E033GC Introduction of Other Therapeutic Substance into Peripheral Vein, Percutaneous Approach (ICD-10-PCS; 2016-08-18)
PROC: 3E033GC Introduction of Other Therapeutic Substance into Peripheral Vein, Percutaneous Approach (ICD-10-PCS; 2016-08-18)
PROC: 0Q8M0ZZ Division of Left Tarsal, Open Approach (ICD-10-PCS; principal; 2016-08-18 17:45)
DX: S91.012A Laceration without foreign body, left ankle, initial encounter (principal); S86.022A Laceration of left Achilles tendon, initial encounter; S92.002B Unspecified fracture of left calcaneus, initial encounter for open fracture; W28.XXXA Contact with powered lawn mower, initial encounter; Y93.H2 Activity, gardening and landscaping; Z23 Encounter for immunization; I10 Essential (primary) hypertension; E11.9 Type 2 diabetes mellitus without complications; K21.9 Gastro-esophageal reflux disease without esophagitis; E66.9 Obesity, unspecified; Z68.34 Body mass index [BMI] 34.0-34.9, adult
CPT/HCPCS: 99291; 90471; 96375; 96365; 36415 ×3; 82962 ×4; 85025 ×2; 85027; 85610; 85730; 80048; 80053; 81001; 83036; 73610; 73630; 90715; 94799; 97116; 97163; 11012; 27650; G0378 ×5; J2250; J1644 ×4; J0690 ×5; A9270 ×10; J3010; J3490 ×2; J2270; J1170; J2550 ×2; J2405 ×4; J7030; J2704; J0744; G8978; G8979; 00400